=== PATIENT | female | born 1990 ===

== ENCOUNTER 2022-08-04 19:04 | Emergency (ER) | payer OTHER ==
[2022-08-04] MEDS: Ondansetron 4 MG/2 ML SDV IVPUSH PRN (19:32)
[2022-08-04] MEDS: Sodium Chloride 0.9% 1,000 ML IV ONE (19:34)
[2022-08-04] MEDS: Ketorolac 30 MG/ML SDV IVPUSH ONE (19:34)
[2022-08-04 20:12] LABS: CHLORIDE,CL 101 mEq/L (98-106); SODIUM,NA 139 mEq/L (136-145)
[2022-08-04 20:13] LABS: ESTIMATED GFR 88 mL/min (>=60)
[2022-08-04] MEDS: Iopamidol 755 Mg/ML 100 ML Bottle IVPUSH ONE (20:19)
== END 2022-08-04 21:11 | disposition home or self-care (01) ==
LOC: CC.ED 19:04
DX: K59.00 Constipation, unspecified (principal); Z20.822 Contact with and (suspected) exposure to COVID-19
CPT/HCPCS: 36415; 74177; 80053; 81001; 81025; 83605; 83690; 83735; 84484; 85025; 96361; 96374; 96375; 99284; 99284-25; J1885; J2405; J7030; Q9967; U0002